=== PATIENT | male | born 1970 | race Caucasian/White ===

== ENCOUNTER → 2020-09-04 07:22 | Outpatient (CLI) | payer OTHER, SELFPAY ==
[2020-09-04 08:13] LABS: Add Manual Diff / Slide Review NO; Basophils Absolute Auto 0 /uL (0-100); Basophils Percent Auto 0.7 % (0-2); Eosinophils Absolute Auto 100 /uL (0-450); Eosinophils Percent Auto 2.2 % (2-4); Hematocrit 45.1 % (41-53); Hemoglobin 15.6 g/dL (13.5-17.5); Lymphocytes Absolute Auto 1800 /uL (1100-4500); Lymphocytes Percent Auto 29.6 % (25-40); Mean Corpuscular HGB Conc 34.6 % (30-36); Mean Corpuscular Hemoglobin 30.6 PG (26-34); Mean Corpuscular Volume 88.4 fL (80-100); Monocytes Absolute Auto 500 /uL (0-900); Monocytes Percent Auto 8.4 % (3-14); Neutrophils Absolute Auto 3700 /uL (1500-7000); Neutrophils Percent Auto 59.1 % (50-75); Platelet Count 251 X10^3/uL (150-400); Red Blood Cell Count 5.11 X10^6/uL (4.5-5.9); Red Cell Distribution Width 13.3 % (11.6-14.8); White Blood Cell Count 6.2 X10^3/uL (4.5-11.0)
[2020-09-04 08:24] LABS: Alanine Aminotransferase 25 IU/L (<50); Albumin 4.4 g/dL (3.5-5.0); Albumin Globulin Ratio 1.3 (1.0-2.8); Alkaline Phosphatase 82 U/L (38-126); Aspartate Aminotransferase 27 IU/L (17-59); BUN Creatinine Ratio 19.6 (6-22); Bilirubin Total 0.4 mg/dL (0.2-1.3); Blood Urea Nitrogen 19 mg/dL (9-20); Calcium 9.8 mg/dL (8.4-10.2); Carbon Dioxide 28 mmol/L (22-32); Chloride 104 mmol/L (98-107); Cholesterol 212 mg/dL (140-199); Estimated Glomerular Filt Rate > 60.0 mL/min (>60); Globulin 3.3 g/dL (1.7-4.1); Glucose 100 mg/dL (70-100); HDL Cholesterol 53 mg/dL (40-60); HEMOLYSIS < 15 (0-50); LDL Cholesterol Calculated 135 mg/dL (<100); Potassium 4.2 mmol/L (3.4-5.1); Sodium 140 mmol/L (137-145); Total Protein 7.7 g/dL (6.3-8.2); Triglycerides 119 mg/dL (35-150)
[2020-09-04 08:41] LABS: Free T4, Direct Thyroxine 1.02 ng/dL (0.78-2.19)
[2020-09-04 08:54] LABS: Thyroid Stimulating Hormone 2.84 uIU/mL (0.47-4.68)
== END ==
PROVIDERS: PCP Internal Medicine; Referring Provider Internal Medicine; Visit Provider Internal Medicine
DX: E78.2 Mixed hyperlipidemia (principal); Z13.1 Encounter for screening for diabetes mellitus; Z13.220 Encounter for screening for lipoid disorders; Z13.6 Encounter for screening for cardiovascular disorders
CPT/HCPCS: 36415; 80053; 80061; 84439; 84443; 85025

== ENCOUNTER → 2020-10-07 13:38 | Outpatient (CLI) | payer OTHER, SELFPAY ==
[2020-10-07 14:01] LABS: COVID19 -Nasal RAPID Negative (Negative)
== END ==
PROVIDERS: PCP Internal Medicine; Visit Provider Student in an Organized Health Care Education/Training Program
DX: Z20.822 Contact with and (suspected) exposure to COVID-19 (principal)
CPT/HCPCS: 87635

== ENCOUNTER → 2021-09-23 16:09 | Outpatient (CLI) | payer OTHER, SELFPAY ==
[2021-09-23 17:03] LABS: COVID19 -Nasal RAPID Negative (Negative)
== END ==
PROVIDERS: PCP Internal Medicine; Visit Provider Surgery
DX: Z20.822 Contact with and (suspected) exposure to COVID-19 (principal); Z01.812 Encounter for preprocedural laboratory examination
CPT/HCPCS: 87635; C9803

== ENCOUNTER 2021-09-24 12:27 | Day surgery (SDC) | payer OTHER, SELFPAY ==
[2021-09-24 12:44] VITALS: BP 111/76; PULSE 59; RESP 18; TEMP 36.6; O2SAT 98; BMI 24.4
[2021-09-24] MEDS: LACTATED RINGERS 1,000 ML 42 ML IV (12:55)
--- NOTE | 2021-09-24 14:32 | PM.HP.1 ---
History of Present Illness History of Present Illness Date Patient Seen: 09/24/21 Time Patient Seen: 14:33 Chief complaint: SDC Narrative: Dandre is a 50-year-old man who has not had a prior colonoscopy. Patient History Medical History Allergies (~1977) H/O renal calculi (~2004) Surgical History Anesthesia History of AAA (abdominal aortic aneurysm) repair Pilonidal cyst S/P appendectomy (~2010) Family & Social History Family History Father Hypertension Heart disease AAA (abdominal aortic aneurysm) Gallbladder disease S/P triple vessel bypass Mother Hyperlipidemia Brother Appendix disease Grandfather Cancer Grandfather Heart disease Grandmother Cerebral hemorrhage Social History: household members children Tobacco & Substance use: Smoking Status Never smoker alcohol intake current alcohol intake frequency a few times a week Substance Use Type does not use Meds Home Medications and Allergies Home Medications Medication Instructions Recorded Confirmed Type fluticasone propionate 50 1 spray INTRANASAL DAILY 07/24/20 09/24/21 History mcg/actuation nasal spray,suspension (Flonase Allergy Relief) loratadine 10 mg tablet (Claritin) 10 mg PO DAILY PRN 07/24/20 09/24/21 History Allergies Allergy/AdvReac Type Severity Reaction Status Date / Time No Known Drug Allergies Allergy Verified 10/07/20 13:37 Exam Vital Signs (past 8 hours): - 09/24/21 12:44 Temperature 97.9 F Pulse Rate 59 L Respiratory Rate 18 Blood Pressure 111/76 Pulse Oximetry 98 Oxygen Delivery Method Room Air Const General: healthy appearing Resp Effort & Inspection: normal respiratory effort Assessment & Plan Assessment and plan (1) Colon cancer screening: Status: Acute Plan We reviewed the risks and benefits of colonoscopy and he would like to proceed. COVID-19 COVID-19 status: Negative Result date/Date tested (Pos, Neg/Pending): 09/23/21 Time Spent With Patient Critical Care time: I spent a total of [] minutes of critical care time on this patient's care today; this time is exclusive of procedural time.
[2021-09-24] MEDS: MIDAZOLAM 5 MG/5 ML VIAL IV (14:58)
[2021-09-24] MEDS: fentaNYL 250 MCG/5 ML INJ 125 MCG IV (14:59)
--- NOTE | 2021-09-24 15:00 | P.OP.COLON_ITS ---
Operative Date/Time/Diagnoses Date of procedure: 09/24/21 Time of procedure: 15:00 Pre-op diagnosis: Colon cancer screening Post-op diagnosis: same Procedure & Clinicians Study performed: Colonoscopy Same procedure as scheduled: Yes Procedure Notes Procedure in detail: Surgeon: Fox Jaimes MD Procedure: The patient was brought to the endoscopy suite, placed in left lateral decubitus position. The patient was connected to monitoring devices. A time-out was performed. Sedation was administered. Once the patient was adequately sedated, a digital rectal exam was performed and was normal. The scope was then inserted and advanced to the cecum where the appendiceal orifice was identified and photographed. The scope was then slowly withdrawn over greater than 6 minutes. Mucosa was thoroughly inspected. No polyps were noted. Diverticulosis was noted. The scope was retroflexed in the rectum. No abnorm alities were noted. The scope was straightened and removed. The patient was awakened and brought to recovery. Versed: 5 mg Fentanyl: 125 mcg EBL: 0 Findings: Normal colon Scope withdrawal time: 7 Sedation minutes: 21 Post-procedure Recommendations: Colonoscopy in 10 years Disposition: PACU
[2021-09-24 15:02] VITALS: BP 103/73; PULSE 58; RESP 15; TEMP 36.4; O2SAT 99
[2021-09-24 15:07] VITALS: BP 88/60; PULSE 54; RESP 12; O2SAT 97
[2021-09-24 15:12] VITALS: BP 94/64; PULSE 52; RESP 12; O2SAT 96
[2021-09-24 15:17] VITALS: BP 94/71; PULSE 59; RESP 12; O2SAT 97
[2021-09-24 15:19] VITALS: BP 98/73; PULSE 60; RESP 14; O2SAT 97
== END 2021-09-24 15:47 | disposition home or self-care (01) ==
PROVIDERS: Surgery; PCP Internal Medicine; Referring Provider Surgery; Visit Provider Surgery
PROC: 0DJD8ZZ Inspection of Lower Intestinal Tract, Via Natural or Artificial Opening Endoscopic (ICD-10-PCS; CPT 45378; principal; 2021-09-24 13:45)
DX: Z12.11 Encounter for screening for malignant neoplasm of colon (principal); K57.30 Diverticulosis of large intestine without perforation or abscess without bleeding
CPT/HCPCS: 45378; 99152; J2250; J3010

== ENCOUNTER 2022-01-12 00:02 | Emergency (ER) | payer OTHER, SELFPAY ==
[2022-01-12 00:14] VITALS: BP 114/65; PULSE 65; RESP 17; TEMP 36.3; O2SAT 99; BMI 25.0
[2022-01-12] MEDS: ONDANSETRON 4 MG/2 ML INJ IV (01:21)
[2022-01-12] MEDS: MORPHINE 4 MG/ML INJ IV (01:22)
[2022-01-12 01:32] LABS: Add Manual Diff / Slide Review NO; BUN Creatinine Ratio 13.5 (6-22); Basophils Absolute Auto 100 /uL (0-100); Basophils Percent Auto 0.8 % (0-2); Blood Urea Nitrogen 14 mg/dL (9-20); Calcium 9.2 mg/dL (8.4-10.2); Carbon Dioxide 31 mmol/L (22-32); Chloride 103 mmol/L (98-107); Eosinophils Absolute Auto 200 /uL (0-450); Eosinophils Percent Auto 2.8 % (2-4); Estimated Glomerular Filt Rate > 60 mL/min (>60); Glucose 151 mg/dL (70-100); HEMOLYSIS < 15 (0-50); Hemoglobin 14.3 g/dL (13.5-17.5); Lymphocytes Absolute Auto 2700 /uL (1100-4500); Lymphocytes Percent Auto 38.9 % (25-40); Mean Corpuscular HGB Conc 34.2 % (30-36); Mean Corpuscular Volume 87.9 fL (80-100); Monocytes Absolute Auto 600 /uL (0-900); Monocytes Percent Auto 8.3 % (3-14); Neutrophils Absolute Auto 3400 /uL (1500-7000); Neutrophils Percent Auto 49.2 % (50-75); Platelet Count 259 X10^3/uL (150-400); Potassium 3.8 mmol/L (3.4-5.1); Red Blood Cell Count 4.77 X10^6/uL (4.5-5.9); Red Cell Distribution Width 13.7 % (11.6-14.8); Sodium 142 mmol/L (137-145)
[2022-01-12 01:44] LABS: Appearance Urine UA CLOUDY; Color Urine UA BROWN; Ketones Urine UA TRACE (NEGATIVE); Nitrite Urine UA NEGATIVE (Negative); Occult Blood Urine UA 3+ (Negative); Protein Urine UA 2+ (Negative); Specific Gravity Urine UA >=1.030 (1.000-1.035); Urobilinogen Urine UA 0.2 E.U./dL (0.2)
[2022-01-12 01:52] VITALS: PULSE 56; O2SAT 97
[2022-01-12 01:53] VITALS: BP 135/84; PULSE 56; O2SAT 97
[2022-01-12 01:55] LABS: Bilirubin Urine UA NEGATIVE (NEGATIVE); Glucose Urine UA NEGATIVE (Negative); Leukocyte Esterase Urine UA NEGATIVE (NEGATIVE)
[2022-01-12 02:00] VITALS: PULSE 54; O2SAT 95
[2022-01-12 02:05] LABS: RBC Urine >100/HPF (0-5/HPF); WBC Urine 0-1/HPF (0-5/HPF)
[2022-01-12 02:06] LABS: Bacteria Urine None Seen; Culture Indicated Urine Cult Not Indicated
--- NOTE | 2022-01-12 02:10 | ED.GENADULT ---
HPI - General Adult General Chief complaint: Urogenital-Male Stated complaint: POSSIBLE KIDNEY STONES Time Seen by Provider: 01/12/22 01:08 Source: patient Mode of arrival: Ambulatory History of Present Illness HPI narrative: Patient is a 51-year-old male here for evaluation of left-sided flank discomfort. He states that was a fairly sudden onset a couple hours prior to arrival here in the emergency department. He has had a kidney stone in the past but that was approximately 20 years ago. He stated that he did pass this stone on his own but it took several weeks. He states this feels very similar to his prior stone. He did take some ibuprofen prior to arrival which helped his symptoms somewhat but then started to return. No rashes. Related Data Home Medications Medication Instructions Recorded Confirmed fluticasone propionate 50 1 spray intranasal DAILY 07/24/20 09/24/21 mcg/actuation nasal spray,suspension (Flonase Allergy Relief) loratadine 10 mg tablet (Claritin) 10 mg PO DAILY PRN Allergy Symptoms 07/24/20 09/24/21 Previous Rx's Medication Instructions Recorded hydrocodone 5 mg-acetaminophen 325 1 tab PO Q4-6H PRN pain #10 tabs 01/12/22 mg tablet ondansetron 4 mg disintegrating 4 mg PO Q6H PRN nausea and 01/12/22 tablet vomiting #10 tabs Allergies Allergy/AdvReac Type Severity Reaction Status Date / Time No Known Drug Allergies Allergy Verified 10/07/20 13:37 Review of Systems Review of Systems ROS Unobtainable: All systems reviewed & are unremarkable except as noted in HPI and below Patient History Medical History Allergies (~1977) H/O renal calculi (~2004) Surgical History (Updated 09/24/21 @ 14:35 by Maida Vazquez RN) Anesthesia Pilonidal cyst S/P appendectomy (~2010) Family History Father Hypertension Heart disease AAA (abdominal aortic aneurysm) Gallbladder disease S/P triple vessel bypass Mother Hyperlipidemia Brother Appendix disease Grandfather Cancer Grandfather Heart disease Grandmother Cerebral hemorrhage Social History household members: children Smoking Status: Never smoker alcohol intake: current Smoking Status: Never smoker alcohol intake frequency: a few times a week Substance Use Type: does not use Exam Initial Vital Signs Initial Vital Signs: Vital Signs Temperature 97.4 F L 01/12/22 00:14 Pulse Rate 65 01/12/22 00:14 Respiratory Rate 17 01/12/22 00:14 Blood Pressure 114/65 01/12/22 00:14 Pulse Oximetry 99 01/12/22 00:14 Oxygen Delivery Method 01/12/22 00:14 HENMT Head: normal to inspection and normocephalic Resp Effort & Inspection: normal respiratory effort Cardio Rate: regular rate GI Inspection: normal to inspection and non-distended Palpation: No tender Back/Spine/Pelvis Back: No CVA tenderness Skin General: no rashes or lesions noted Neuro General: patient alert, patient awake and moves all extremities Extrem General: normal to inspection Psych Appearance: grossly normal and well kempt Course Orders Ordered: ED Orders 01/12/22 00:30 Basic Metabolic Panel Stat Complete Blood Count AUTO DIFF Stat Urinalysis and Microscopic Stat Discontinued Medications Hydrocodone Bitart/Acetaminophen (Hydrocodone/Acet 5/325 Prepack) 1 bottle MISC SEEINSTR ONE Stop: 01/12/22 02:12 Last Admin: 01/12/22 02:33 Dose: 1 bottle Documented By: ANGLE Morphine Sulfate (Morphine 4 Mg/Ml Inj) 4 mg IV NOW ONE Stop: 01/12/22 01:09 Last Admin: 01/12/22 01:22 Dose: 4 mg Documented By: ANGLE Ondansetron HCl (Ondansetron 4 Mg/2 Ml Inj) 4 mg IV NOW ONE Stop: 01/12/22 01:09 Last Admin: 01/12/22 01:21 Dose: 4 mg Documented By: ANGLE Ondansetron HCl (Ondansetron 4 Mg Odt Prepack) 1 bottle MISC SEEINSTR ONE Stop: 01/12/22 02:12 Last Admin: 01/12/22 02:33 Dose: 1 bottle Documented By: ANGLE Vital Signs Vital signs: Vital Signs - 8 hr 01/12/22 00:14 01/12/22 01:52 01/12/22 01:53 Temperature 97.4 F L Pulse Rate 65 56 L 56 L Respiratory Rate 17 Blood Pressure 114/65 Pulse Oximetry 99 97 97 Oxygen Delivery Method Room Air 01/12/22 01:53 01/12/22 02:00 Temperature Pulse Rate 54 L Respiratory Rate Blood Pressure 135/84 Pulse Oximetry 95 Oxygen Delivery Method Medical Decision Making Lab Data Result diagrams: 01/12/22 00:30 01/12/22 00:30 Labs: Lab Results 01/12/22 01/12/22 01/12/22 Range/Units 00:30 00:30 00:30 WBC 7.0 (4.5-11.0) X10^3/uL RBC 4.77 (4.5-5.9) X10^6/uL Hgb 14.3 (13.5-17.5) g/dL Hct 42.0 (41-53) % MCV 87.9 (80-100) fL MCH 30.0 (26-34) PG MCHC 34.2 (30-36) % RDW 13.7 (11.6-14.8) % Plt Count 259 (150-400) X10^3/uL Neut % (Auto) 49.2 L (50-75) % Lymph % (Auto) 38.9 (25-40) % [place] % (Auto) 8.3 (3-14) % Eos % (Auto) 2.8 (2-4) % Baso % (Auto) 0.8 (0-2) % Neut # (Auto) 3400 (2726-7116) /uL Lymph # (Auto) 2700 (0868-0195) /uL [place] # (Auto) 600 (0-900) /uL Eos # (Auto) 200 (0-450) /uL Baso # (Auto) 100 (0-100) /uL Sodium 142 (137-145) mmol/L Potassium 3.8 (3.4-5.1) mmol/L Chloride 103 (98-107) mmol/L Carbon Dioxide 31 (22-32) mmol/L BUN 14 (9-20) mg/dL Creatinine 1.04 (0.66-1.25) mg/dL Estimated GFR > 60 (>60) mL/min BUN/Creatinine Ratio 13.5 (6-22) Glucose 151 H (70-100) mg/dL Calcium 9.2 (8.4-10.2) mg/dL Urine Color Brown Urine Appearance Cloudy Urine pH 5.0 (4.5-8.0) Ur Specific [place] >=1.030 H (1.000-1.035) Urine Protein 2+ H (Negative) Urine Glucose (UA) Negative (Negative) g/dL Urine Ketones Trace H (NEGATIVE) Urine Occult Blood 3+ H (Negative) Urine Nitrate Negative (Negative) Urine Bilirubin Negative (NEGATIVE) Urine Urobilinogen 0.2 (0.2) E.U./dL Ur Leukocyte Esterase Negative (NEGATIVE) Urine RBC >100/hpf H (0-5/HPF) Urine WBC 0-1/hpf (0-5/HPF) Urine Bacteria None seen (None) Ur Culture Indicated? Cult not indicated MDM Narrative Medical decision making narrative: Patient's history is consistent with a stone and his urine does have blood. Kidney functions unremarkable. No signs of infection. Had a discussion with him regarding options to include obtaining a CT scan to definitively diagnose the stone however feel that a stone is most likely the cause of his symptoms. We also discussed the CT scan which show a size and location. After this discussion we opted to not obtain a CT scan today and treat him conservatively with pain control. He was given strict return precautions. He expressed understanding and agreement. Discharge Plan Departure Patient Disposition: Home Clinical Impression: Renal colic on left side Instructions: DI for Kidney Stones Activity Restrictions/Additional Instructions: Recommend that you take the medications as directed. Contact your primary doctor for follow-up. Return to the emergency department for fevers, pain that is not controlled with the medication, inability to urinate, or any other new or worsening symptoms. Prescriptions: New hydrocodone-acetaminophen 5-325 mg tablet 1 tab PO Q4-6H PRN (Reason: pain) Qty: 10 0RF ondansetron 4 mg tablet,disintegrating 4 mg PO Q6H PRN (Reason: nausea and vomiting) Qty: 10 0RF No Action loratadine [Claritin] 10 mg tablet 10 mg PO DAILY PRN (Reason: Allergy Symptoms) fluticasone propionate [Flonase Allergy Relief] 50 mcg/actuation spray,suspension 1 spray intranasal DAILY Label Comments: not this year Rx Instructions: administer into each nostril Referrals: Yann Kee MD [Primary Care Provider] - Visit Report Forms: Patient Portal/API
[2022-01-12] MEDS: ONDANSETRON 4 MG ODT PREPACK 1 BOTTLE MISC (02:33)
[2022-01-12] MEDS: HYDROCODONE/ACET 5/325 PREPACK 1 BOTTLE MISC (02:33)
== END 2022-01-12 02:41 | disposition home or self-care (01) ==
PROVIDERS: Emergency Provider Emergency Medicine; PCP Internal Medicine
DX: N23 Unspecified renal colic (principal); Z87.442 Personal history of urinary calculi
CPT/HCPCS: 36415; 80048; 81001; 85025; 96374; 96375; 99284; J2270; J2405

== ENCOUNTER 2022-01-17 02:51 | Emergency (ER) | payer OTHER, SELFPAY ==
[2022-01-17 02:58] VITALS: BP 122/76; PULSE 55; RESP 19; TEMP 36.6; O2SAT 96; BMI 25.0
--- NOTE | 2022-01-17 03:05 | ED.GENADULT ---
HPI - General Adult General Chief complaint: Abdominal Pain Stated complaint: POSS. KIDNEY STONE/HX Time Seen by Provider: 01/17/22 02:54 Source: patient Mode of arrival: Ambulatory History of Present Illness HPI narrative: 51-year-old gentleman with a distant history of kidney stones was seen on the with left flank pain that felt very similar. He was treated for a kidney stone and with shared decision making opted not to do a confirmatory CT scan. He had pain that continued for approximately 24 hours and has been doing well since then until this evening as he was getting into bed. Began to have similar pain that progressed rapidly to significant pain causing vomiting and diaphoresis. He comes into the emergency department for further evaluation. He denies any fevers, no constipation or diarrhea, no chest pain, palpitations, headaches. Related Data Home Medications Medication Instructions Recorded Confirmed fluticasone propionate 50 1 spray intranasal DAILY 07/24/20 09/24/21 mcg/actuation nasal spray,suspension (Flonase Allergy Relief) loratadine 10 mg tablet (Claritin) 10 mg PO DAILY PRN Allergy Symptoms 07/24/20 09/24/21 Previous Rx's Medication Instructions Recorded hydrocodone 5 mg-acetaminophen 325 1 tab PO Q4-6H PRN pain #10 tabs 01/12/22 mg tablet ondansetron 4 mg disintegrating 4 mg PO Q6H PRN nausea and 01/12/22 tablet vomiting #10 tabs Allergies Allergy/AdvReac Type Severity Reaction Status Date / Time No Known Drug Allergies Allergy Verified 01/17/22 03:00 Review of Systems Review of Systems Narrative: Remainder of complete review of systems is otherwise unremarkable except for that included in the HPI. Patient History Medical History Allergies (~1977) H/O renal calculi (~2004) Surgical History Anesthesia Pilonidal cyst S/P appendectomy (~2010) Family History Father Hypertension Heart disease AAA (abdominal aortic aneurysm) Gallbladder disease S/P triple vessel bypass Mother Hyperlipidemia Brother Appendix disease Grandfather Cancer Grandfather Heart disease Grandmother Cerebral hemorrhage Social History household members: children Smoking Status: Never smoker alcohol intake: current Smoking Status: Never smoker alcohol intake frequency: a few times a week Substance Use Type: does not use Exam Initial Vital Signs Initial Vital Signs: Vital Signs Temperature 97.9 F 01/17/22 02:58 Pulse Rate 55 L 01/17/22 02:58 Respiratory Rate 19 01/17/22 02:58 Blood Pressure 122/76 01/17/22 02:58 Pulse Oximetry 96 01/17/22 02:58 Oxygen Delivery Method 01/17/22 02:58 General: Healthy appearing, in significant distress, splinting the left flank, diaphoretic but still Able to give a complete and coherent history. Well-nourished well-developed HEENT: Moist mucous membranes, normal sclera with reactive pupils, Neck: , supple Respiratory: Lungs are clear to auscultation, no wheezing no rales no rhonchi. Full and symmetrical air movement Cardiac: Regular rate and rhythm no murmurs no bruits Abdomen: Soft, nontender, no rebound or guarding, hypoactive bowel tones, left flank pain Skin: Pale and diaphoretic,, no rashes Neurologic: Grossly neurologically intact with no obvious asymmetries or abnormalities Extremities: No trauma, well perfused Psych: Cooperative, appropriate insight and affect Course Orders Ordered: ED Orders 01/17/22 03:13 Complete Blood Count AUTO DIFF Stat Comprehensive Metabolic Panel Stat 01/17/22 04:05 CT kidney ureter bladder (KUB) Stat Hydromorphone HCl (Hydromorphone 0.5 Mg Inj) 0.5 mg IV Q15MIN PRN PRN Reason: Pain, Discontinued Medications Sodium Chloride (Normal Saline 0.9%) 1,000 mls @ 1,000 mls/hr IV BOLUS ONE Stop: 01/17/22 04:16 Last Infusion: 01/17/22 04:50 Dose: 0 mls/hr Documented By: Admin: 01/17/22 03:24 Dose: 1,000 mls/hr Documented By: MACI Ketorolac Tromethamine (Ketorolac 30 Mg/Ml Vial) 15 mg IV NOW ONE Stop: 01/17/22 03:18 Last Admin: 01/17/22 03:25 Dose: 15 mg Documented By: EB Ondansetron HCl (Ondansetron 4 Mg/2 Ml Inj) 4 mg IV NOW ONE Stop: 01/17/22 03:18 Last Admin: 01/17/22 03:25 Dose: 4 mg Documented By: MACI Vital Signs Vital signs: Vital Signs - 8 hr 01/17/22 02:58 Temperature 97.9 F Pulse Rate 55 L Respiratory Rate 19 Blood Pressure 122/76 Pulse Oximetry 96 Oxygen Delivery Method Room Air Medical Decision Making Lab Data Result diagrams: 01/17/22 03:13 01/17/22 03:13 Labs: Lab Results 01/17/22 01/17/22 Range/Units 03:13 03:13 WBC 10.1 (4.5-11.0) X10^3/uL RBC 4.81 (4.5-5.9) X10^6/uL Hgb 14.6 (13.5-17.5) g/dL Hct 41.9 (41-53) % MCV 87.1 (80-100) fL MCH 30.4 (26-34) PG MCHC 34.9 (30-36) % RDW 13.6 (11.6-14.8) % Plt Count 271 (150-400) X10^3/uL Neut % (Auto) 71.5 (50-75) % Lymph % (Auto) 18.7 L (25-40) % [place] % (Auto) 7.1 (3-14) % Eos % (Auto) 1.3 L (2-4) % Baso % (Auto) 1.4 (0-2) % Neut # (Auto) 7200 H (6725-6503) /uL Lymph # (Auto) 1900 (2246-5667) /uL [place] # (Auto) 700 (0-900) /uL Eos # (Auto) 100 (0-450) /uL Baso # (Auto) 100 (0-100) /uL Sodium 140 (137-145) mmol/L Potassium 3.9 (3.4-5.1) mmol/L Chloride 100 (98-107) mmol/L Carbon Dioxide 30 (22-32) mmol/L BUN 17 (9-20) mg/dL Creatinine 1.14 (0.66-1.25) mg/dL Estimated GFR > 60 (>60) mL/min BUN/Creatinine Ratio 14.9 (6-22) Glucose 120 H (70-100) mg/dL Calcium 9.6 (8.4-10.2) mg/dL Total Bilirubin 0.8 (0.2-1.3) mg/dL AST 25 (17-59) IU/L ALT 20 (<50) IU/L Alkaline Phosphatase 85 (38-126) U/L Total Protein 8.1 (6.3-8.2) g/dL Albumin 4.5 (3.5-5.0) g/dL Globulin 3.6 (1.7-4.1) g/dL Albumin/Globulin Ratio 1.3 (1.0-2.8) Imaging Data CT scan - abdomen/pelvis: Radiologist's Impression: 3 mm obstructing calculus left UVJ with mild hydroureteronephrosis, renal edema on the left. No perinephric fluid. No evidence of obstructive uropathy on the right. Marcell Leal MD [facility] Narrative Medical decision making narrative: 51-year-old gentleman with a history of kidney stones number of years ago presented initially on January 12 with left flank pain presumed to be kidney stone resolved after 24 hours. Significant recurrence with nausea and vomiting secondary to severity of pain this morning. Lab work is reassuring, CT scan shows a kidney stone at the ureterovesical junction almost into the bladder with no hydronephrosis. Pain was adequately controlled with fluid Zofran and Toradol. There is no evidence of infection or renal damage. Stone seems to be passing at this time at and and a likely is minimal benefit to Flomax given that the stone is almost completely in the bladder. Discharge Plan Departure Patient Disposition: Home Clinical Impression: Ureterolithiasis Instructions: DI for Kidney Stones Activity Restrictions/Additional Instructions: Thank you for coming in today. Your pain is absolutely from a kidney stone and the kidney stone is almost completely into your bladder at the time of the CT scan. There is no evidence that urine is being blocked back up into your left kidney. Lab work is reassuring suggesting no evidence of overwhelming infection or multi complications. Using 400 mg of ibuprofen (2 [id number] pills) and 1 Tylenol every 6 hours can be very helpful in controlling pain. For severe pain you can use to ibuprofen and 1 hydrocodone. You told me that you still had hydrocodone available to you at home to use. Please do follow-up with your primary care doctor and feel free to return to the emergency department should you have recurrent symptoms Prescriptions: No Action loratadine [Claritin] 10 mg tablet 10 mg PO DAILY PRN (Reason: Allergy Symptoms) fluticasone propionate [Flonase Allergy Relief] 50 mcg/actuation spray,suspension 1 spray intranasal DAILY Label Comments: not this year Rx Instructions: administer into each nostril hydrocodone-acetaminophen 5-325 mg tablet 1 tab PO Q4-6H PRN (Reason: pain) Qty: 10 0RF ondansetron 4 mg tablet,disintegrating 4 mg PO Q6H PRN (Reason: nausea and vomiting) Qty: 10 0RF Referrals: Yann Kee MD [Primary Care Provider] -
[2022-01-17] MEDS: SODIUM CHLORIDE 0.9% 1,000 ML 1000 ML IV (03:24)
[2022-01-17] MEDS: KETOROLAC 30 MG/ML VIAL 15 MG IV (03:25)
[2022-01-17] MEDS: ONDANSETRON 4 MG/2 ML INJ IV (03:25)
[2022-01-17 03:30] LABS: Add Manual Diff / Slide Review NO; Basophils Absolute Auto 100 /uL (0-100); Basophils Percent Auto 1.4 % (0-2); Eosinophils Absolute Auto 100 /uL (0-450); Eosinophils Percent Auto 1.3 % (2-4); Hematocrit 41.9 % (41-53); Hemoglobin 14.6 g/dL (13.5-17.5); Lymphocytes Absolute Auto 1900 /uL (1100-4500); Lymphocytes Percent Auto 18.7 % (25-40); Mean Corpuscular HGB Conc 34.9 % (30-36); Mean Corpuscular Hemoglobin 30.4 PG (26-34); Mean Corpuscular Volume 87.1 fL (80-100); Monocytes Absolute Auto 700 /uL (0-900); Monocytes Percent Auto 7.1 % (3-14); Neutrophils Absolute Auto 7200 /uL (1500-7000); Neutrophils Percent Auto 71.5 % (50-75); Platelet Count 271 X10^3/uL (150-400); Red Blood Cell Count 4.81 X10^6/uL (4.5-5.9); Red Cell Distribution Width 13.6 % (11.6-14.8); White Blood Cell Count 10.1 X10^3/uL (4.5-11.0)
[2022-01-17 03:39] LABS: Alanine Aminotransferase 20 IU/L (<50); Albumin 4.5 g/dL (3.5-5.0); Albumin Globulin Ratio 1.3 (1.0-2.8); Alkaline Phosphatase 85 U/L (38-126); Aspartate Aminotransferase 25 IU/L (17-59); BUN Creatinine Ratio 14.9 (6-22); Bilirubin Total 0.8 mg/dL (0.2-1.3); Blood Urea Nitrogen 17 mg/dL (9-20); Calcium 9.6 mg/dL (8.4-10.2); Carbon Dioxide 30 mmol/L (22-32); Chloride 100 mmol/L (98-107); Estimated Glomerular Filt Rate > 60 mL/min (>60); Globulin 3.6 g/dL (1.7-4.1); Glucose 120 mg/dL (70-100); HEMOLYSIS < 15 (0-50); Potassium 3.9 mmol/L (3.4-5.1); Sodium 140 mmol/L (137-145); Total Protein 8.1 g/dL (6.3-8.2)
--- NOTE | 2022-01-17 04:05 | DI.CT.S_ITS ---
PROCEDURE: CT KIDNEY URETER BLADDER (KUB) INDICATIONS: left flank pain TECHNIQUE: Axial sections were acquired from the lung bases to the pubic symphysis. Coronal and sagittal reformats were performed. For radiation dose reduction, the following was used: automated exposure control, adjustment of mA and/or kV according to patient size. COMPARISON: None. FINDINGS: Lower thorax: The lung bases are clear. Heart size normal. No hiatal hernia. Liver: Normal in size and attenuation. No contour deformity present. Biliary system: No calcified cholelithiasis or pericholecystic inflammation. No intra or extrahepatic bile duct dilatation. Pancreas: Unremarkable without mass or inflammation evident. Spleen: Normal in size and density. Adrenals: Normal morphology and density. Reproductive system: Unremarkable as visualized. Urinary system: Distal left uterovesical junction 3 mm calculus results in mild left hydronephrosis and hydroureter. Right kidney unremarkable without calculus or hydronephrosis. Gastrointestinal system: The bowel is unremarkable without evidence of bowel obstruction or inflammation. The stomach appears unremarkable. Appendix: No findings to suggest acute appendicitis. Peritoneal spaces: No mesenteric or retroperitoneal adenopathy. No free air. No free fluid. Vasculature: The IVC, aorta and iliac vasculature are unremarkable. Abdominal wall: Abdominal wall intact without evidence of ventral or inguinal hernias. Musculoskeletal: Normal bone mineralization. No acute fractures. IMPRESSION: 1. Small 3 mm distal left UVJ calculus results in mild left hydronephrosis and hydroureter. Note: Final report is concordant with preliminary interpretation by [facility] Approved by: Petros Haines M.D. on 01/17/2022 at 6:44
[2022-01-17 06:53] VITALS: BP 109/70; PULSE 80; RESP 16; O2SAT 98
== END 2022-01-17 06:54 | disposition home or self-care (01) ==
PROVIDERS: Emergency Provider Emergency Medicine; PCP Internal Medicine
DX: N20.1 Calculus of ureter (principal)
CPT/HCPCS: 74176; 80053; 85025; 96361; 96374; 96375; 99283; 99284; J1885; J2405

== ENCOUNTER → 2025-01-27 12:55 | Outpatient (CLI) | payer OTHER, SELFPAY ==
[2025-01-27 13:46] LABS: Influenza A - CEPHEID Flu A NEGATIVE (NEGATIVE); Influenza B - CEPHEID Flu B NEGATIVE (NEGATIVE)
[2025-01-27 13:53] LABS: COVID-19 CEPHEID 4-PLEX PCR Negative (Negative)
== END ==
PROVIDERS: PCP Internal Medicine; Visit Provider Chiropractor
DX: R05.1 Acute cough (principal)
CPT/HCPCS: 87637

== ENCOUNTER → 2025-02-22 14:55 | Outpatient (CLI) | payer OTHER, SELFPAY ==
--- NOTE | 2025-02-22 14:56 | DI.RAD.S_ITS ---
PROCEDURE: XR CHEST 2V INDICATIONS: Cough 1 month TECHNIQUE: 2 views of the chest were acquired. COMPARISON: None. FINDINGS: Heart, mediastinum and pulmonary vascular: Heart is normal in size and configuration. Mediastinum is unremarkable. Pulmonary vascular is normal. Lungs: Clear Pleural spaces: Normal-no effusions or pneumothorax. Bones and soft tissues: Normal IMPRESSION: Normal chest. Dictated by: Yann Swenson M.D. on 02/25/2025 at 12:30 Approved by: Yann Swenson M.D. on 02/25/2025 at 12:31
== END ==
PROVIDERS: PCP Internal Medicine; Referring Provider Nurse Practitioner Family; Visit Provider Nurse Practitioner Family
DX: R05.9 Cough, unspecified (principal)
CPT/HCPCS: 71046